=== PATIENT | male | born 1985 | race American Indian/Alaskan Native ===

== ENCOUNTER 2017-03-12 02:54 | Emergency (ER) | payer SELFPAY ==
[2017-03-12 03:02] VITALS: BP 136/86
[2017-03-12 03:33] LABS: Basophils % (Auto) 0.9 % (0.0-1.8); Eosinophils % (Auto) 7.4 % (0.0-4.3); Hematocrit 43.9 % (35.5-45.6); Hemoglobin 14.9 gm/dl (11.8-15.2); Mean Corpuscular HGB Conc 34 % (32-34); Mean Corpuscular Hemoglobin 32 pg (28-32); Mean Corpuscular Volume 94 fl (84-94); Platelet Count 237 K/mm3 (140-440); Red Blood Count 4.67 M/mm3 (3.65-5.03); Red Cell Distribution Width 13.6 % (13.2-15.2); White Blood Count 8.2 K/mm3 (4.5-11.0)
[2017-03-12 03:47] LABS: Anion Gap 19 mmol/L; BUN/Creatinine Ratio 15.45; Blood Urea Nitrogen 17 mg/dL (9-20); Calcium 9.1 mg/dL (8.4-10.2); Carbon Dioxide 23 mmol/L (22-30); Chloride 103.9 mmol/L (98-107); Glucose 67 mg/dL (75-100); Potassium 4.1 mmol/L (3.6-5.0); Sodium 142 mmol/L (137-145)
== END 2017-03-12 03:35 | disposition left against medical advice (07) ==
LOC: ED 02:54
DX: R06.09 Other forms of dyspnea (principal); Z53.21 Procedure and treatment not carried out due to patient leaving prior to being seen by health care provider
CPT/HCPCS: 36415; 80048; 84484; 85025; 93005; 93010

== ENCOUNTER 2020-11-15 08:27 | Emergency (ER) | payer BC ==
[2020-11-15 08:32] VITALS: BP 112/73
--- NOTE | 2020-11-15 08:39 | Emergency Department Report ---
ED ENT HPI - General Chief complaint: Upper Respiratory Infection Stated complaint: NOSE BLEEDING/SOB Source: patient Mode of arrival: Ambulatory Limitations: No Limitations - History of Present Illness Initial comments: 35-year-old -H[place] male presents to the emergency room complaining of sinus problems. Patient's states she has been having intermittent nasal conges tion and nosebleeds since Saturday. States that he has had a nosebleeds 2-3 times a day when he blows his nose. Patient denies any headache no nausea no vomiting but does admit to rhinorrhea and nasal congestion. Patient states he takes Claritin and started on Saturday. Patient does admit to having history of seasonal allergies. MD complaint: epistaxis, other (nasal comgestion. ) Onset/Timin -: days(s) Location: nose Severity scale (0 -10): 5 Improves with: none Worsens with: none Context-Epistaxis: history of similar Associated Symptoms: rhinorrhea, other (Nasal congestion) - Related Data Previous Rx's Medication Instructions Recorded Last Taken Type Fluticasone Furoate [Flonase 1 spray NS QDAY #1 bottle 11/15/20 Unknown Rx Sensimist] Loratadine/Pseudoephedrine 1 tab PO Q12H 10 Days #20 tablet 11/15/20 Unknown Rx [Claritin-D 12HR] cephALEXin [Keflex] 500 mg PO Q12HR 7 Days #14 cap 11/15/20 Unknown Rx Allergies Allergy/AdvReac Type Severity Reaction Status Date / Time pineapple Allergy Vomiting Verified 03/12/17 03:02 ED Dental HPI - General Chief complaint: Upper Respiratory Infection Stated complaint: NOSE BLEEDING/SOB Source: patient Mode of arrival: Ambulatory Limitations: No Limitations - Related Data Previous Rx's Medication Instructions Recorded Last Taken Type Fluticasone Furoate [Flonase 1 spray NS QDAY #1 bottle 11/15/20 Unknown Rx Sensimist] Loratadine/Pseudoephedrine 1 tab PO Q12H 10 Days #20 tablet 11/15/20 Unknown Rx [Claritin-D 12HR] cephALEXin [Keflex] 500 mg PO Q12HR 7 Days #14 cap 11/15/20 Unknown Rx Allergies Allergy/AdvReac Type Severity Reaction Status Date / Time pineapple Allergy Vomiting Verified 03/12/17 03:02 ED Review of Systems ROS: Stated complaint: NOSE BLEEDING/SOB Other details as noted in HPI Comment: All other systems reviewed and negative ED Past Medical Hx - Past Medical History Previous Medical History?: No - Surgical History Past Surgical History?: No - Social History Smoking Status: Current Every Day Smoker Substance Use Type: Marijuana - Medications Home Medications: Home Medications Medication Instructions Recorded Confirmed Last Taken Type Fluticasone Furoate [Flonase 1 spray NS QDAY #1 bottle 11/15/20 Unknown Rx Sensimist] Loratadine/Pseudoephedrine 1 tab PO Q12H 10 Days #20 tablet 11/15/20 Unknown Rx [Claritin-D 12HR] cephALEXin [Keflex] 500 mg PO Q12HR 7 Days #14 cap 11/15/20 Unknown Rx ED Physical Exam - General Limitations: No Limitations General appearance: alert, in no apparent distress - Head Head exam: Present: atraumatic, normocephalic - Eye Eye exam: Present: normal appearance - ENT ENT exam: Present: normal exam, normal orophraynx, mucous membranes moist, other (Bilateral nasal turbinates enlarged and bright red no active bleeding) - Neck Neck exam: Present: normal inspection, full ROM - Respiratory Respiratory exam: Present: normal lung sounds bilaterally. Absent: chest wall tenderness, accessory muscle use - Cardiovascular Cardiovascular Exam: Present: regular rate, normal rhythm. Absent: systolic murmur, diastolic murmur, rubs, gallop - Extremities Exam Extremities exam: Present: normal inspection, full ROM - Back Exam Back exam: Present: normal inspection - Neurological Exam Neurological exam: Present: alert, oriented X3, normal gait - Psychiatric Psychiatric exam: Present: normal affect, normal mood - Skin Skin exam: Present: warm, dry, intact, normal color. Absent: rash ED Course Vital Signs 11/15/20 08:31 Temperature 98.3 F Pulse Rate 71 Respiratory 22 Rate Blood Pressure 112/73 O2 Sat by Pulse 99 Oximetry ED Medical Decision Making - Medical Decision Making 35-year-old -[place] male presents to the emergency room complaining of sinus problems. Patient's states she has been having intermittent nasal congestion and nosebleeds since Saturday. States that he has had a nosebleeds 2-3 times a day when he blows his nose. Patient denies any headache no nausea no vomiting but does admit to rhinorrhea and nasal congestion. Patient states he takes Claritin and started on Saturday. Patient does admit to having history of seasonal allergies. Place patient on Keflex, Flonase Afrin for nasal bleeding and follow-up with ear nose and throat provider. Critical care attestation.: If time is entered above; I have spent that time in minutes in the direct care of this critically ill patient, excluding procedure time. ED Disposition Clinical Impression: Sinusitis, Epistaxis, recurrent Disposition: - TO HOME OR SELFCARE Is pt being admited?: No Does the pt Need Aspirin: No Condition: Stable Instructions: Sinusitis, Adult, [id number], Nosebleed, [id number] Additional Instructions: Take medications as prescribed. Follow-up with the primary care provider and ear nose and throat provider. Prescriptions: Loratadine/Pseudoephedrine [Claritin-D 12HR] 1 tab PO Q12H 10 Days #20 tablet Fluticasone Furoate [Flonase Sensimist] 1 spray NS QDAY #1 bottle cephALEXin [Keflex] 500 mg PO Q12HR 7 Days #14 cap Referrals: PRIMARY MD AYLA [Primary Care Provider] - 3-5 Days CASSIE LARA MD [Staff Physician] - 3-5 Days AHSAN DOYLE MD [Staff Physician] - 3-5 Days Forms: Work/School Release Form(ED)
== END 2020-11-15 09:16 | disposition home or self-care (01) ==
LOC: ED 08:27
DX: J32.9 Chronic sinusitis, unspecified (principal); R04.0 Epistaxis; F17.200 Nicotine dependence, unspecified, uncomplicated; F12.90 Cannabis use, unspecified, uncomplicated; Z91.018 Allergy to other foods; Z79.899 Other long term (current) drug therapy
CPT/HCPCS: 99281